=== PATIENT | female | born 1985 | race Hispanic/Latino ===

== ENCOUNTER 2018-12-09 02:09 | Emergency (ER) | payer SELFPAY ==
--- NOTE | 2018-12-09 03:12 | ER ---
Nurse's Notes [facility] Name: Usha Nance Age: 33 yrs Sex: Female : 1985 Arrival Date: 12/09/2018 Time: 02:14 Bed 6 Private MD: Diagnosis: Uncontrolled Hypertension Presentation: 12/09 02:25 Presenting complaint: Patient states: head pressure with blood pressure readings at [facility] home of 146/103 and 156/119. pt seen at [facility] on and given 10 days of lisinopril 10mg with instructions to return to clinic after 10 days. Transition of care: patient was not received from another setting of care. Onset of symptoms was December 09, 2018. Risk Assessment: Do you want to hurt yourself or someone else? Patient reports no desire to harm self or others. Initial Sepsis Screen: Does the patient meet any 2 criteria? No. Patient's initial sepsis screen is negative. Does the patient have a suspected source of infection? No. Patient's initial sepsis screen is negative. Care prior to arrival: None. 02:25 Method Of Arrival: Ambulatory [facility] 02:25 Acuity: MIGUEL 3 ak Triage Assessment: 02:29 General: Appears in no apparent distress. Behavior is calm, cooperative. Pain: ak1 Complains of pain in head pressure. EENT: No signs and/or symptoms were reported regarding the EENT system. 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 Gait is steady, Speech is normal. Cardiovascular: No deficits noted. Respiratory: No deficits noted. GI: No signs and/or symptoms were reported involving the gastrointestinal system. : No signs and/or symptoms were reported regarding the genitourinary system. Derm: No signs and/or symptoms reported regarding the dermatologic system. Musculoskeletal: No signs and/or symptoms reported regarding the musculoskeletal system. 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 - Social history:: Smoking status: Patient/guardian denies using tobacco. - Ebola Screening: : No symptoms or risks identified at this time. Screenin:32 Abuse screen: Denies threats or abuse. Denies injuries from another. Nutritional ak1 screening: No deficits noted. Tuberculosis screening: No symptoms or risk factors identified. Fall Risk None identified. Assessment: 02:36 Reassessment: Patient appears in no apparent distress at this time. No changes from ak1 previously documented assessment. see triage assessment. 03:10 Reassessment: verbal order to hold medications due vital signs. pt stated her headache ak1 was better, refused Tylenol. Vital Signs: 02:29 BP 146 / 96; Pulse 89; Resp 16; Temp 98.4(O); Pulse Ox 98% on R/A; Weight 123.83 kg ak1 (R); Height 5 ft. 4 in. (162.56 cm) (R); Pain 4/10; 02:37 BP 128 / 87; Pulse 87; Pulse Ox 97% on R/A; ak1 02:45 BP 113 / 64; Pulse 77; Resp 16; Pulse Ox 97% on R/A; ak1 03:00 BP 114 / 70; Pulse 77; Resp 16; Pulse Ox 97% on R/A; ak1 02:29 Body Mass Index 46.86 (123.83 kg, 162.56 cm) ak1 ED Course: 02:14 Patient arrived in ED. bb 02:18 Ken Gomez MD is Attending Physician. pkl 02:28 Triage completed. ak1 02:29 Arm band placed on Patient placed in an exam room, on a stretcher, Patient notified of ak1 wait time. 02:32 Patient has correct armband on for positive identification. Placed in gown. Bed in low ak1 position. Call light in reach. Side rails up X 1. Pulse ox on. NIBP on. 02:36 Autumn Yanez, CRISTINO is Primary Nurse. ak1 03:11 No provider procedures requiring assistance completed. Patient did not have IV access ak1 during this emergency room visit. Administered Medications: 03:13 Not Given (Patient Refused): Tylenol 1000 mg PO once ak1 03:13 Not Given (Physician Discretion): Lisinopril 20 mg PO once ak1 Outcome: 03:12 Discharge ordered by . pkl 03:13 Discharged to home ambulatory, with family. ak1 03:13 Condition: good 03:13 Discharge instructions given to patient, family, Instructed on discharge instructions, follow up and referral plans. Demonstrated understanding of instructions, follow-up care. 03:19 Patient left the ED. bb Signatures: Ken Gomez MD MD pkl Ballard, Brenda RN RN bb Autumn Yanez RN RN ak1
--- NOTE | 2018-12-09 03:12 | EDPHYS ---
Physician Documentation [facility] Name: Usha Nance Age: 33 yrs Sex: Female : 1985 Arrival Date: 12/09/2018 Time: 02:14 Bed 6 Private MD: ED Physician Ken Gomez HPI: 12/09 02:37 This 33 yrs old Female presents to ER via Ambulatory with complaints of High pkl Blood Pressure. 02:37 Onset: The symptoms/episode began/occurred 1 week(s) ago. Associated signs and pkl symptoms: Pertinent positives: headache. Patient ran out of BP medication ( Lisinopril 10 mg ). Seen at [facility] given 10 days supply of Lisinopril 10 mg and has follow up appt. on Sunday.. 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 - Social history:: Smoking status: Patient/guardian denies using tobacco. - Ebola Screening: : No symptoms or risks identified at this time. ROS: 02:37 Eyes: Negative for injury, pain, redness, and discharge, ENT: Negative for injury, pkl pain, and discharge, Neck: Negative for injury, pain, and swelling, Cardiovascular: Negative for chest pain, palpitations, and edema, Respiratory: Negative for shortness of breath, cough, wheezing, and pleuritic chest pain, Abdomen/GI: Negative for abdominal pain, nausea, vomiting, diarrhea, and constipation, Back: Negative for injury and pain, : Negative for injury, bleeding, discharge, and swelling, MS/Extremity: Negative for injury and deformity, Skin: Negative for injury, rash, and discoloration. 02:37 Neuro: Positive for headache. Exam: 02:37 Head/Face: Normocephalic, atraumatic. Eyes: Pupils equal round and reactive to light, pkl extra-ocular motions intact. Lids and lashes normal. Conjunctiva and sclera are non-icteric and not injected. Cornea within normal limits. Periorbital areas with no swelling, redness, or edema. ENT: Nares patent. No nasal discharge, no septal abnormalities noted. Tympanic membranes are normal and external auditory canals are clear. Oropharynx with no redness, swelling, or masses, exudates, or evidence of obstruction, uvula midline. Mucous membranes moist. Neck: Trachea midline, no thyromegaly or masses palpated, and no cervical lymphadenopathy. Supple, full range of motion without nuchal rigidity, or vertebral point tenderness. No Meningismus. Chest/axilla: Normal chest wall appearance and motion. Nontender with no deformity. No lesions are appreciated. Cardiovascular: Regular rate and rhythm with a normal S1 and S2. No gallops, murmurs, or rubs. Normal PMI, no JVD. No pulse deficits. Respiratory: Lungs have equal breath sounds bilaterally, clear to auscultation and percussion. No rales, rhonchi or wheezes noted. No increased work of breathing, no retractions or nasal flaring. Abdomen/GI: Soft, non-tender, with normal bowel sounds. No distension or tympany. No guarding or rebound. No evidence of tenderness throughout. Back: No spinal tenderness. No costovertebral tenderness. Full range of motion. Skin: Warm, dry with normal turgor. Normal color with no rashes, no lesions, and no evidence of cellulitis. MS/ Extremity: Pulses equal, no cyanosis. Neurovascular intact. Full, normal range of motion. Neuro: Awake and alert, GCS 15, oriented to person, place, time, and situation. Cranial nerves II-XII grossly intact. Motor strength 5/5 in all extremities. Sensory grossly intact. Cerebellar exam normal. Normal gait. Vital Signs: 02:29 BP 146 / 96; Pulse 89; Resp 16; Temp 98.4(O); Pulse Ox 98% on R/A; Weight 123.83 kg ak1 (R); Height 5 ft. 4 in. (162.56 cm) (R); Pain 4/10; 02:37 BP 128 / 87; Pulse 87; Pulse Ox 97% on R/A; ak1 02:45 BP 113 / 64; Pulse 77; Resp 16; Pulse Ox 97% on R/A; ak1 03:00 BP 114 / 70; Pulse 77; Resp 16; Pulse Ox 97% on R/A; ak1 02:29 Body Mass Index 46.86 (123.83 kg, 162.56 cm) ak1 MDM: 02:18 Patient medically screened. pkl 02:55 Data reviewed: vital signs, nurses notes. pkl Administered Medications: 03:13 Not Given (Patient Refused): Tylenol 1000 mg PO once ak1 03:13 Not Given (Physician Discretion): Lisinopril 20 mg PO once ak1 Disposition: 12/09/18 03:12 Discharged to Home. Impression: Uncontrolled Hypertension. - Condition is Stable. - Medication Reconciliation Form, Thank You Letter, Antibiotic Education, Prescription Opioid Use form. - Follow up: Private Physician; When: 1 - 2 days; Reason: Re-evaluation by your physician. - Problem is new. - Symptoms have improved. Signatures: Ken Gomez MD MD pkl Felecia Dodson, RN RN bb Autumn Yanez RN RN ak1 Corrections: (The following items were deleted from the chart) 03:19 03:12 12/09/2018 03:12 Discharged to Home. Impression: Uncontrolled Hypertension. bb Condition is Stable. Forms are Medication Reconciliation Form, Thank You Letter, Antibiotic Education, Prescription Opioid Use. Follow up: Private Physician; When: 1 - 2 days; Reason: Re-evaluation by your physician. Problem is new. Symptoms have improved. pkl
== END 2018-12-09 03:19 | disposition home or self-care (01) ==
LOC: ER 02:09
DX: I10 Essential (primary) hypertension (principal)
CPT/HCPCS: 99283